=== PATIENT | male | born 1960 | race Caucasian/White ===

== ENCOUNTER → 2016-09-25 | Outpatient (CLI) | payer OTHER ==
--- NOTE | 2016-09-25 13:29 | US ---
EXAMINATION TYPE: US kidneys/renal and bladder DATE OF EXAM: 09/25/2016 COMPARISON: NONE CLINICAL HISTORY: R30.0 Dysuria. Patient stated noticed urinary burning and pain with voiding and sta triston noticed symptoms after change in work equipment oil products/smoke byproducts on work machinery. EXAM MEASUREMENTS: Right Kidney: 10.7 x 5.7 x 4.5 cm Left Kidney: 10.5 x 5.6 x 4.8 cm Post Void Residual Volume: 6.4 mL Right Kidney: No hydronephrosis or masses seen Left Kidney: No hydronephrosis is seen; small lateral cortical cyst is seen = 0.5 x 0.5 x 0.4cm Bladder: not fully distended Bilateral Jets seen: Yes Normal Post Void Residual: yes Prostate: Incidental note that multiple calcifications are seen within the gland. IMPRESSION: 1. Probable simple cyst left kidney. No acute findings seen.
== END ==
LOC: RADUSWWP 12:37
PROVIDERS: ATTEND Family Medicine
DX: R30.0 Dysuria (principal)
CPT/HCPCS: 76770

== ENCOUNTER 2017-04-04 20:10 | Emergency (ER) | payer OTHER ==
[2017-04-04 20:20] VITALS: RESP 18
--- NOTE | 2017-04-04 21:53 | XR ---
PROCEDURE: XR finger LT, 3 views DATE AND TIME: 04/04/2017 9:43 PM REFERRING PHYSICIAN: Evelyn Case CLINICAL INDICATION: Pain. Left fourth digit caught in a machine at work, laceration to middle and d istal phalanx. TECHNIQUE: 3 views were obtained of the third and fourth digit - with partial inclusion of the fifth and second digits. COMPARISON: None FINDINGS: SKELETAL STRUCTURES: There is no fracture or malalignment. SOFT TISSUES: There are numerous tiny threadlike metallic radiopaque foreign bodies throughout soft t issues of the third digit, fourth digit, and visualized fifth digit. These measure 1 mm short axis an d up to 6 mm long axis. IMPRESSION: Scattered radiopaque foreign bodies within the soft tissues.
[2017-04-04] MEDS ORDERED: GELATIN SPONGE,ABSORB (SMALL) 1 EACH SPONGE TOPICAL STA (22:33)
[2017-04-04] MEDS ORDERED: DIPH,PERTUS(ACELL)TETVAC-LF 0.5 ML VIAL IM ONE (22:38)
[2017-04-04] MEDS ORDERED: CEPHALEXIN 500MG STARTER PACK 4 CAP BTL PO STA (22:47)
--- NOTE | 2017-04-04 22:49 | ED ---
Wound/Laceration HPI - General Chief Complaint: Wound/Laceration Stated Complaint: Finger laceration Time Seen by Provider: 04/04/17 21:06 Source: patient, RN notes reviewed, old records reviewed Mode of arrival: ambulatory Limitations: no limitations - History of Present Illness Initial Comments: Patient is a 56 year old male with CC of laceration over left ring finger tip. Patient reports it was smashed between a steel container and conveyor belt at work. He reports no nail bed involvement. Patient has full range of motion of finger. He states he does not recall last tetanus shot. Patient has no other injury associated with accident. He is right handed. - Related Data Home Medications Medication Instructions Recorded Confirmed Ibuprofen [Advil] 200 mg PO Q8HR PRN 04/04/17 04/04/17 Previous Rx's Medication Instructions Recorded Cephalexin [Keflex] 500 mg PO Q8HR #21 cap 04/04/17 Allergies Allergy/AdvReac Type Severity Reaction Status Date / Time No Known Allergies Allergy Verified 04/04/17 21:11 Review of Systems ROS Statement: Those systems with pertinent positive or pertinent negative responses have been documented in the HPI. ROS Other: All systems not noted in ROS Statement are negative. Past Medical History Past Medical History: No Reported History History of Any Multi-Drug Resistant Organisms: None Reported Past Surgical History: No Surgical Hx Reported Past Psychological History: No Psychological Hx Reported Smoking Status: Current every day smoker Past Alcohol Use History: None Reported Past Drug Use History: None Reported General Exam - General Exam Comments Initial Comments: This is a 56 year old male. No distress. Limitations: no limitations General appearance: alert, in no apparent distress Head exam: Present: atraumatic, normocephalic, normal inspection Eye exam: Present: normal appearance, PERRL, EOMI. Absent: scleral icterus, conjunctival injection, periorbital swelling ENT exam: Present: normal exam, mucous membranes moist Neck exam: Present: normal inspection. Absent: tenderness, meningismus, lymphadenopathy Respiratory exam: Present: normal lung sounds bilaterally. Absent: respiratory distress, wheezes, rales, rhonchi, stridor Cardiovascular Exam: Present: regular rate, normal rhythm, normal heart sounds. Absent: systolic murmur, diastolic murmur, rubs, gallop, clicks Left Forearm Wrist exam: Present: normal inspection, full ROM Hand Wrist exam: Present: full ROM, laceration (flap laceration over left tip ring finger. Patient hasno nailbed involvement. No tendon involvement. ). Absent: normal inspection Neuro motor exam: Present: wrist extension intact, thumb opposition intact, thumb IP flexion intact, thumb adduction intact, fingers 2-5 abduction intact Neurosensory exam: Present: 2-point discrimination Vascular: Present: normal capillary refill Back exam: Present: normal inspection Neurological exam: Present: alert, oriented X3, CN II-XII intact Psychiatric exam: Present: normal affect, normal mood Skin exam: Present: warm, dry, intact, normal color. Absent: rash Course Vital Signs 04/04/17 04/04/17 20:16 23:07 Temperature 97.8 F 98.2 F Pulse Rate 75 74 Respiratory 18 18 Rate Blood Pressure 142/66 136/83 O2 Sat by Pulse 98 98 Oximetry Procedures - Laceration Laceration #1 Site: hand (left distal ring finger) Size (cm): 3 Description: flap Depth: simple, single layer Anesthetic Used: lidocaine 1% Anesthesia Technique: nerve block Amount (mls): 4 Pre-repair: wound explored, irrigated extensively Type of Sutures: nylon Size of Sutures: 6-0 Number of Sutures: 8 Technique: simple, interrupted Patient Tolerated Procedure: well, no complications Medical Decision Making - Medical Decision Making Patient is a 56 year old male with a laceration over left ring finger. Patient hand was soaked and given updated tetanus shot. Patient has full ROM no tendon involvement. Patient xrays show no fracture, small metal fragments throughout patient hands. Patient works in metal shop. Patient infomrmed of this. Wound was well approximated with 8 sutures. Patient started on keflex. Patient will follow up with PCP and ortho hand specialist. Discussed wound care. REturn parameters discussed. - Radiology Data Radiology results: report reviewed Small metal fragments noted in hand xray. No fracture or dislcation. Disposition Clinical Impression: Laceration of left ring finger Disposition: HOME SELF-CARE Condition: Good Instructions: Laceration (ED) Additional Instructions: Please return to the emergency room in 8-10 days to have sutures removed. Please leave wound covered for the first 24-48 hours and then leave open to air after that time. Please use clean soap and water to clean the suture area to prevent scabbing over the top of your sutures. Please watch for any signs of infection which may include but not limited to increased pain, swelling, redness , fever or chills. Please return to the emergency room if any signs of infection do occur. Please return to the emergency room for any other concerns or complications. Prescriptions: Cephalexin [Keflex] 500 mg PO Q8HR #21 cap Referrals: None,Stated [Primary Care Provider] - 1-2 days Time of Disposition: 22:49
[2017-04-04 23:08] VITALS: BP 136/83; PULSE 74; TEMP 98.2
--- NOTE | 2017-04-05 06:14 | CDI ---
Documentation Clarification OP Dear DELBERT Chinchilla: Please do addendum to ED report for HPI , Physical exam and MDM. Thank you, Lizbet Jovel [employer] If you have any question, Please contact infrastructure manager at [phone] [facility]
== END 2017-04-04 23:08 | disposition home or self-care (01) ==
LOC: EC 20:10
DX: S61.215A Laceration without foreign body of left ring finger without damage to nail, initial encounter (principal); F17.200 Nicotine dependence, unspecified, uncomplicated; Z23 Encounter for immunization; W23.0XXA Caught, crushed, jammed, or pinched between moving objects, initial encounter; Y99.0 Civilian activity done for income or pay
CPT/HCPCS: 12002; 90471; 90715; 99283

== ENCOUNTER 2017-07-01 18:56 | Emergency (ER) | payer OTHER ==
[2017-07-01] MEDS ORDERED: PROPARACAINE 0.5% OPHTH DROPS 15 ML BTL BOTH EYES STA (22:16)
--- NOTE | 2017-07-01 22:37 | ED ---
General Adult HPI - General Chief complaint: Eye Problems Stated complaint: FB LEFT EYE Time Seen by Provider: 07/01/17 22:13 Source: patient, RN notes reviewed Mode of arrival: ambulatory Limitations: no limitations - History of Present Illness Initial comments: 56-year-old male presents to the emergency department for a chief complaint of foreign body in the left eye. Patient states he was at work when he felt something go into his eye. Patient states he immediately came to the emergency department. Patient denies any visual changes or blurriness of the vision. Patient just has a foreign body sensation in the left eye. Patient denies pain with movement of the eye or pain behind the eye. Patient denies halos or scintillations. Patient denies any other injuries. Patient has no other complaints at this time including shortness of breath, chest pain, abdominal pain, nausea or vomiting, headache, or visual changes. - Related Data Home Medications Medication Instructions Recorded Confirmed Ibuprofen [Advil] 200 mg PO Q8HR PRN 04/04/17 04/04/17 Previous Rx's Medication Instructions Recorded Cephalexin [Keflex] 500 mg PO Q8HR #21 cap 04/04/17 Erythromycin Ophth Oint [Romycin 1 applic LEFT EYE QID 5 Days #1 07/01/17 Ophth Oint] tube Allergies Allergy/AdvReac Type Severity Reaction Status Date / Time No Known Allergies Allergy Verified 07/01/17 20:03 Review of Systems ROS Statement: Those systems with pertinent positive or pertinent negative responses have been documented in the HPI. ROS Other: All systems not noted in ROS Statement are negative. Past Medical History Past Medical History: No Reported History History of Any Multi-Drug Resistant Organisms: None Reported Past Surgical History: No Surgical Hx Reported Past Psychological History: No Psychological Hx Reported Smoking Status: Current every day smoker Past Alcohol Use History: None Reported Past Drug Use History: None Reported General Exam Limitations: no limitations General appearance: alert, in no apparent distress Head exam: Present: atraumatic, normocephalic, normal inspection Eye exam: Present: normal appearance, PERRL, EOMI, other (There is a very small black particle of a foreign body at 6:00 in the left cornea. ). Absent: scleral icterus, conjunctival injection, periorbital swelling, periorbital tenderness Pupils: Present: normal accommodation ENT exam: Present: normal exam, normal oropharynx, mucous membranes moist Respiratory exam: Present: normal lung sounds bilaterally. Absent: respiratory distress, wheezes, rales, rhonchi, stridor Cardiovascular Exam: Present: regular rate, normal rhythm, normal heart sounds. Absent: systolic murmur, diastolic murmur, rubs, gallop, clicks Course Vital Signs 07/01/17 20:00 Temperature 98.8 F Pulse Rate 77 Respiratory 16 Rate Blood Pressure 140/82 O2 Sat by Pulse 97 Oximetry Procedures - Procedures Initial comment: Left eye was numbed with proparacaine. A Q-tip was then used to remove the foreign body successfully. The eye was then stained with fluorescein stain and a Dias lamp was used to inspect the eye. There is a small abrasion at 6:00 where the foreign body was embedded. No signs of a rust ring. Negative Jannie sign. No other abrasions noted. Medical Decision Making - Medical Decision Making 56-year-old male presents to the emergency department for a chief complaint of left eye foreign body 3 hours. Patient was at work when he felt a foreign body in his eye. Patient denies pain behind the eye, visual changes, pain with movement of the eye, halos around lights, or scintillations. Patient states he came immediately to the emergency department. Left eye was inspected and foreign body was removed with Q-tip. Eye was numbed with proparacaine and fluorescein stain and Wood's lamp was used to visualize the abrasion. The only abrasion is the one from the foreign body at 6:00 in the eye. No other abrasions noted. Negative Jannie sign. Both lids were flipped which showed no other foreign bodies. Visual acuity was performed which was 20/20. Patient states he is up-to-date with tetanus as of March due to a laceration. Patient was prescribed erythromycin ointment which he will use for 5 days. He will follow up with primary care in 1-2 days. He will return to the emergency department if he has any worsening symptoms or changes in visual acuity. Disposition Clinical Impression: Corneal foreign body Disposition: HOME SELF-CARE Condition: Good Instructions: Eye Foreign Body (ED) Additional Instructions: Please use antibiotic ointment in left eye as directed. Please return to the emergency department if you have any visual changes or worsening symptoms. Otherwise follow-up with primary care in 1-2 days. Prescriptions: Erythromycin Ophth Oint [Romycin Ophth Oint] 1 applic LEFT EYE QID 5 Days #1 tube Is patient prescribed a controlled substance at d/c from ED?: No Referrals: None,Stated [Primary Care Provider] - 1-2 days Erick Hickman MD [STAFF PHYSICIAN] - 1-2 days Time of Disposition: 22:36
[2017-07-01 22:48] VITALS: BP 129/91; PULSE 71; RESP 18; TEMP 98.4
== END 2017-07-01 22:49 | disposition home or self-care (01) ==
LOC: EC 18:56
DX: T15.02XA Foreign body in cornea, left eye, initial encounter (principal); F17.200 Nicotine dependence, unspecified, uncomplicated; Y92.69 Other specified industrial and construction area as the place of occurrence of the external cause; Y99.0 Civilian activity done for income or pay
CPT/HCPCS: 65222; 99283

== ENCOUNTER 2018-11-13 14:50 | Emergency (ER) | payer OTHER ==
[2018-11-13] MEDS ORDERED: PROPARACAINE 0.5% OPHTH DROPS 15 ML BTL RIGHT EYE STA (15:01)
[2018-11-13] MEDS ORDERED: ERYTHROMYCIN 5 MG/GM OPHTH OINT 3.5 GM TUBE LEFT EYE STA (16:06)
[2018-11-13] MEDS ORDERED: GENTAMICIN 0.3% OPHTH DROPS 5 ML BTL LEFT EYE STA (16:19)
--- NOTE | 2018-11-13 16:22 | ED ---
General Adult HPI - General Chief complaint: Eye Problems Stated complaint: [facility]-FB in eye Time Seen by Provider: 11/13/18 15:01 Source: patient, RN notes reviewed, old records reviewed Mode of arrival: ambulatory Limitations: no limitations - History of Present Illness Initial comments: 58-year-old male patient is ED chief complaint possible foreign body left eye. Patient notes that yesterday while at work he was using a hair blower to clean out a carotid region. Patient points that he was wearing glasses the time. Patient does report that when he got home from work he felt as if he had a foreign body in his left eye region. Patient states the tetanus is up-to-date. Patient reports that he previously irrigated his eye and was rubbing a fair am ount yesterday. Patient reports that this morning he did to have irritation in his left upper lateral eye region. Patient reports that is at baseline. Patient reports the tetanus is up-to-date. Patient denies any other complaints. Systemic: Pt denies fatigue, fever/chills, rash. Pt denies weakness, night sweats, weight loss. Neuro: Pt denies headache, visual disturbances, syncope or pre-syncope. HEENT: Pt denies otalgia, rhinorrhea, pharyngitis or notable lymphadenopathy. Cardiopulmonary: Pt denies chest pain, SOB, heart palpitations, dyspnea on exertion. Abdominal/GI: Pt denies abdominal pain, n/v/d. : Pt denies dysuria, burning w/ urination, frequency/urgency. Denies new onset urinary or bowel incontinence. MSK: Pt denies myalgia, loss of strength or function in extremities. Neuro: Pt denies new onset weakness, paresthesias. - Related Data Home Medications Medication Instructions Recorded Confirmed Ibuprofen [Advil] 200 mg PO Q8HR PRN 04/04/17 04/04/17 Previous Rx's Medication Instructions Recorded Cephalexin [Keflex] 500 mg PO Q8HR #21 cap 04/04/17 Erythromycin Ophth Oint [Romycin 1 applic LEFT EYE QID 5 Days #1 07/01/17 Ophth Oint] tube Gentamicin 0.3% Ophth Soln 2 drops LEFT EYE Q4HR 5 Days #1 11/13/18 [Garamycin 0.3% Ophth Soln] bottle Allergies Allergy/AdvReac Type Severity Reaction Status Date / Time No Known Allergies Allergy Verified 11/13/18 14:58 Review of Systems ROS Statement: Those systems with pertinent positive or pertinent negative responses have been documented in the HPI. ROS Other: All systems not noted in ROS Statement are negative. Past Medical History Past Medical History: No Reported History History of Any Multi-Drug Resistant Organisms: None Reported Past Surgical History: No Surgical Hx Reported Past Psychological History: No Psychological Hx Reported Smoking Status: Current every day smoker Past Alcohol Use History: None Reported Past Drug Use History: None Reported General Exam - General Exam Comments Initial Comments: Constitutional: NAD, AOX3, Pt has pleasant affect. HEENT: NC/AT, trachea midline, neck supple, no lymphadenopathy. Posterior pharynx non erythematous, without exudates. External ears appear normal, without discharge. Mucous membranes moist. Eyes PERRLA, EOM intact. There is no scleral icterus. No pallor noted. Intractable pressure 16 average bilaterally. Fluorescent stain and left eye reveals a corneal abrasion at 3:00 and 11:00. No foreign body noted. No injection. Cardiopulmonary: RRR, no murmurs, rubs or gallops, no JVD noted. Lungs CTAB in anterior and posterior capone. No peripheral edema. Abdominal exam: Abdomen soft and non-distended. Abdomen non-tender to palpation in all 4 quadrants. Bowel sounds active in LLQ. No hepatosplenomegaly. No ecchymosis Neuro: CN II-XII grossly intact. No nuchal rigidity. No raccon eyes, no lopez sign, no hemotympanum. No cervical spinal tenderness. MSK: No posterior calf tenderness bilaterally, homans sign negative bilaterally. Posterior tibialis and radial pulse +2 bilaterally. Sensation intact in upper and lower extremities. Full active ROM in upper and lower extremities, 5/5 stregnth. Limitations: no limitations Course Vital Signs 11/13/18 14:55 Temperature 97.8 F Pulse Rate 80 Respiratory 20 Rate Blood Pressure 132/82 O2 Sat by Pulse 99 Oximetry Medical Decision Making - Medical Decision Making 58-year-old male patient with the chief complaint of possible foreign body. Patient vital signs stable, afebrile. Tetanus up-to-date. Patient was sedated vigorously flush his eye yesterday. Physical exam revealed normal intraocular pressure bilaterally. Corneal abrasion at 3:00 and 11:00. Patient will be discharged on erythromycin. Will follow up with plate maker zinc tomorrow. Patient is not a contact lens wearer. Case discussed with Dr. Lyon, Disposition Clinical Impression: Corneal abrasion, left Disposition: HOME SELF-CARE Condition: Stable Instructions (If sedation given, give patient instructions): Corneal Abrasion (ED) Additional Instructions: Patient to adhere to previously discussed treatment plan and will take medication(s) as directed. Patient to follow up with PCP in 1-2 days. Patient to return to ED if symptoms do not improve. Use antibiotics as directed, follow up with plate maker zinc tomorrow. Return to ER if condition worsens. Prescriptions: Gentamicin 0.3% Ophth Soln [Garamycin 0.3% Ophth Soln] 2 drops LEFT EYE Q4HR 5 Days #1 bottle Is patient prescribed a controlled substance at d/c from ED?: No Referrals: None,Stated [Primary Care Provider] - 1-2 days Eduard Rojas MD [STAFF PHYSICIAN] - 1-2 days
[2018-11-13 16:49] VITALS: BP 130/80; PULSE 81; RESP 16; TEMP 98.1
== END 2018-11-13 16:48 | disposition home or self-care (01) ==
LOC: EC 14:50
DX: S05.02XA Injury of conjunctiva and corneal abrasion without foreign body, left eye, initial encounter (principal); F17.200 Nicotine dependence, unspecified, uncomplicated; X58.XXXA Exposure to other specified factors, initial encounter; Y93.89 Activity, other specified; Y92.69 Other specified industrial and construction area as the place of occurrence of the external cause; Y99.0 Civilian activity done for income or pay
CPT/HCPCS: 99283

== ENCOUNTER 2019-09-04 09:06 | Emergency (ER) | payer OTHER ==
[2019-09-04 10:26] LABS: Basophils # (A) 0.1 k/uL (0-0.2); Basophils % (A) 1 %; Eosinophils # (A) 0.4 k/uL (0-0.7); Eosinophils % (A) 7 %; HCT 43.5 % (39.0-53.0); HGB 14.4 gm/dL (13.0-17.5); Lymphocytes # (A) 2.1 k/uL (1.0-4.8); Lymphocytes % (A) 34 %; MCH 30.1 pg (25.0-35.0); MCHC 33.2 g/dL (31.0-37.0); MCV 90.8 fL (80.0-100.0); Mean Platelet Volume 8.8; Monocytes # (A) 0.4 k/uL (0-1.0); Monocytes % (A) 6 %; Neutrophils # (A) 3.1 k/uL (1.3-7.7); Neutrophils % (A) 50 %; Platelet Count 232 k/uL (150-450); RBC 4.79 m/uL (4.30-5.90); RDW 12.4 % (11.5-15.5); WBC 6.2 k/uL (3.8-10.6)
[2019-09-04 10:35] LABS: ALT 23 U/L (4-49); AST 25 U/L (17-59); African American GFR (CKD) >90 (>60 ml/min/1.73 sqM); Albumin 4.8 g/dL (3.5-5.0); Alkaline Phosphatase 62 U/L (38-126); Anion Gap 9 mmol/L; Blood Urea Nitrogen 18 mg/dL (9-20); Calcium 9.5 mg/dL (8.4-10.2); Carbon Dioxide 24 mmol/L (22-30); Chloride 106 mmol/L (98-107); Glucose 99 mg/dL (74-99); Non-African American GFR(CKD) >90 (>60 ml/min/1.73 sqM); Potassium 4.3 mmol/L (3.5-5.1); Sodium 139 mmol/L (137-145); Total Bilirubin 0.4 mg/dL (0.2-1.3)
[2019-09-04 10:40] LABS: INR 0.9 (<1.2); Partial Thromboplastin Time 24.1 sec (22.0-30.0); Prothrombin Time 9.4 sec (9.0-12.0)
--- NOTE | 2019-09-04 10:51 | ED ---
SOB HPI - General Chief Complaint: Shortness of Breath Stated Complaint: sent by [facility], SOB Time Seen by Provider: 09/04/19 09:15 Source: patient Mode of arrival: ambulatory Limitations: no limitations - History of Present Illness Initial Comments: Patient is a 58-year-old male with past medical history of nephrolithiasis who presents emergency department with reported shortness of breath. Patient reports to source of breath over the past several years however has gotten progressively worse of the past several weeks. He does work around graphite and concerns about work related exposure. Patient admits to a nonproductive cough. No hemoptysis. Denies any chest pain. No previous history of cardiac disease. Does admit to exertional shortness of breath. He did awaken overnight from back pain with numbness and tingling down his left leg. Admits to calf pain. Denies history of DVT or PE. No recent travel. No fevers or chills. No sick contacts with similar symptoms. No other alleviating, precipitating or modifying factors - Related Data Previous Rx's Medication Instructions Recorded Albuterol Sulfate [Proair Hfa] 1 - 2 puff INHALATION Q4HR PRN #1 09/04/19 inhaler Allergies Allergy/AdvReac Type Severity Reaction Status Date / Time No Known Allergies Allergy Verified 09/04/19 10:24 Review of Systems ROS Statement: Those systems with pertinent positive or pertinent negative responses have been documented in the HPI. ROS Other: All systems not noted in ROS Statement are negative. Past Medical History Past Medical History: No Reported History Additional Past Medical History / Comment(s): kidney stones History of Any Multi-Drug Resistant Organisms: None Reported Past Surgical History: No Surgical Hx Reported Past Psychological History: No Psychological Hx Reported Smoking Status: Current every day smoker Past Alcohol Use History: None Reported Past Drug Use History: None Reported General Exam Limitations: no limitations General appearance: alert, in no apparent distress Head exam: Present: atraumatic, normocephalic, normal inspection Eye exam: Present: normal appearance, PERRL, EOMI. Absent: scleral icterus, conjunctival injection, periorbital swelling ENT exam: Present: normal exam, mucous membranes moist Neck exam: Present: normal inspection. Absent: tenderness, meningismus, lymphadenopathy Respiratory exam: Present: normal lung sounds bilaterally. Absent: respiratory distress, wheezes, rales, rhonchi, stridor Cardiovascular Exam: Present: regular rate, normal rhythm, normal heart sounds. Absent: systolic murmur, diastolic murmur, rubs, gallop, clicks GI/Abdominal exam: Present: soft, normal bowel sounds. Absent: distended, tenderness, guarding, rebound, rigid Extremities exam: Present: normal inspection, full ROM, normal capillary refill. Absent: tenderness, pedal edema, joint swelling, calf tenderness Back exam: Present: normal inspection Neurological exam: Present: alert, oriented X3, CN II-XII intact Psychiatric exam: Present: normal affect, normal mood Skin exam: Present: warm, dry, intact, normal color. Absent: rash Course Vital Signs 09/04/19 09/04/19 09:11 12:29 Temperature 98.4 F 98.0 F Pulse Rate 66 65 Respiratory 20 18 Rate Blood Pressure 130/79 117/71 O2 Sat by Pulse 97 96 Oximetry Medical Decision Making - Medical Decision Making Pulmonary the patient is placed in room 10. A thorough history and physical exam was performed. Laboratory studies were conducted. I did ultrasound the patient's left leg as he does report numbness during sleep. Chest is x-ray performed. Laboratory studies are remarkable for a d-dimer of 0.61. I did recommend computed tomography scan of the patient's chest however patient refus ed at this time. Venous Doppler is negative for DVT of the left lower extremity. Chest x-ray demonstrates no acute intrathoracic process. I did discuss diagnosis, differential and treatment options. At this time patient will be discharged home and is to follow-up with his primary care physician. Also recommended follow-up with a botany laboratory assistant for lung function testing. I recommended he decrease his exposure to graphite as the patient insists that this is his inciting reason for shortness of breath. Patient will be provided with an albuterol inhaler. If the patient has any new or worsening symptoms return to the emergency department. Patient was discharged home in stable condition - Lab Data Result diagrams: 09/04/19 10:16 09/04/19 10:16 Lab Results 09/04/19 09/04/19 09/04/19 Range/Units 10:16 10:16 10:16 WBC 6.2 (3.8-10.6) k/uL RBC 4.79 (4.30-5.90) m/uL Hgb 14.4 (13.0-17.5) gm/dL Hct 43.5 (39.0-53.0) % MCV 90.8 (80.0-100.0) fL MCH 30.1 (25.0-35.0) pg MCHC 33.2 (31.0-37.0) g/dL RDW 12.4 (11.5-15.5) % Plt Count 232 (150-450) k/uL Neutrophils % 50 % Lymphocytes % 34 % Monocytes % 6 % Eosinophils % 7 % Basophils % 1 % Neutrophils # 3.1 (1.3-7.7) k/uL Lymphocytes # 2.1 (1.0-4.8) k/uL Monocytes # 0.4 (0-1.0) k/uL Eosinophils # 0.4 (0-0.7) k/uL Basophils # 0.1 (0-0.2) k/uL PT 9.4 (9.0-12.0) sec INR 0.9 (<1.2) APTT 24.1 (22.0-30.0) sec D-Dimer 0.61 H (<0.60) mg/L FEU Sodium 139 (137-145) mmol/L Potassium 4.3 (3.5-5.1) mmol/L Chloride 106 (98-107) mmol/L Carbon Dioxide 24 (22-30) mmol/L Anion Gap 9 mmol/L BUN 18 (9-20) mg/dL Creatinine 0.72 (0.66-1.25) mg/dL Est GFR (CKD-EPI)AfAm >90 (>60 ml/min/1.73 sqM) Est GFR (CKD-EPI)NonAf >90 (>60 ml/min/1.73 sqM) Glucose 99 (74-99) mg/dL Calcium 9.5 (8.4-10.2) mg/dL Total Bilirubin 0.4 (0.2-1.3) mg/dL AST 25 (17-59) U/L ALT 23 (4-49) U/L Alkaline Phosphatase 62 (38-126) U/L Troponin I (0.000-0.034) ng/mL NT-Pro-B Natriuret Pep pg/mL Total Protein 8.0 (6.3-8.2) g/dL Albumin 4.8 (3.5-5.0) g/dL 09/04/19 09/04/19 Range/Units 10:16 10:16 WBC (3.8-10.6) k/uL RBC (4.30-5.90) m/uL Hgb (13.0-17.5) gm/dL Hct (39.0-53.0) % MCV (80.0-100.0) fL MCH (25.0-35.0) pg MCHC (31.0-37.0) g/dL RDW (11.5-15.5) % Plt Count (150-450) k/uL Neutrophils % % Lymphocytes % % Monocytes % % Eosinophils % % Basophils % % Neutrophils # (1.3-7.7) k/uL Lymphocytes # (1.0-4.8) k/uL Monocytes # (0-1.0) k/uL Eosinophils # (0-0.7) k/uL Basophils # (0-0.2) k/uL PT (9.0-12.0) sec INR (<1.2) APTT (22.0-30.0) sec D-Dimer (<0.60) mg/L FEU Sodium (137-145) mmol/L Potassium (3.5-5.1) mmol/L Chloride (98-107) mmol/L Carbon Dioxide (22-30) mmol/L Anion Gap mmol/L BUN (9-20) mg/dL Creatinine (0.66-1.25) mg/dL Est GFR (CKD-EPI)AfAm (>60 ml/min/1.73 sqM) Est GFR (CKD-EPI)NonAf (>60 ml/min/1.73 sqM) Glucose (74-99) mg/dL Calcium (8.4-10.2) mg/dL Total Bilirubin (0.2-1.3) mg/dL AST (17-59) U/L ALT (4-49) U/L Alkaline Phosphatase (38-126) U/L Troponin I <0.012 (0.000-0.034) ng/mL NT-Pro-B Natriuret Pep 39 pg/mL Total Protein (6.3-8.2) g/dL Albumin (3.5-5.0) g/dL - EKG Data EKG Comments: EKG demonstrates a sinus bradycardia with a ventricular rate of 57. MS interval 164. QRS 72. QTC of 406. Some J-point elevation in V2 through V6. No acute ST segment elevations or depressions Disposition Clinical Impression: Cough, Shortness of breath, Environmental exposure Disposition: HOME SELF-CARE Condition: Stable Instructions (If sedation given, give patient instructions): Shortness of Breath (ED) Additional Instructions: I recommend that you decrease your exposure to graphite until evaluated by the botany laboratory assistant. You may have to follow up with her primary care physician prior to seeing the botany laboratory assistant. Use the inhaler as directed. Return to the emergency room for any new or worsening symptoms Prescriptions: Albuterol Sulfate [Proair Hfa] 1 - 2 puff INHALATION Q4HR PRN #1 inhaler PRN Reason: difficulty in breathing Is patient prescribed a controlled substance at d/c from ED?: No Referrals: Yeni Xie MD [REFERRING] - 1-2 days Ji Craig MD [STAFF PHYSICIAN] - 1-2 days Time of Disposition: 11:49
[2019-09-04 11:28] LABS: D-Dimer 0.61 mg/L FEU (<0.60)
--- NOTE | 2019-09-04 11:33 | XR ---
EXAMINATION TYPE: XR chest 2V DATE OF EXAM: 09/04/2019 COMPARISON: None HISTORY: 58 year-old male shortness of breath, difficulty breathing TECHNIQUE: PA and lateral views FINDINGS: The cardiomediastinal silhouette, aorta, and pulmonary vasculature are within normal limits. Lungs an d pleural spaces are clear. IMPRESSION: No acute cardiopulmonary process.
--- NOTE | 2019-09-04 11:36 | US ---
EXAMINATION TYPE: US venous doppler duplex LE LT DATE OF EXAM: 09/04/2019 9:43 AM COMPARISON: NONE CLINICAL HISTORY: 58-year-old male shortness of breath, left leg pain. Pt states left leg pain SIDE PERFORMED: Left TECHNIQUE: The lower extremity deep venous system is examined utilizing real time linear array sonog sol with graded compression, doppler sonography and color-flow sonography. FINDINGS: VESSELS IMAGED: External Iliac Vein (EIV) Common Femoral Vein Deep Femoral Vein Greater Saphenous Vein * Femoral Vein Popliteal Vein Small Saphenous Vein * Proximal Calf Veins (* superficial vessels) Left Leg: Negative for DVT IMPRESSION: No evidence for DVT within the left lower extremity imaged from the groin to the upper calf.
[2019-09-04 12:31] VITALS: BP 117/71; PULSE 65; RESP 18; TEMP 98
== END 2019-09-04 12:32 | disposition home or self-care (01) ==
LOC: EC 09:06
DX: T75.89XA Other specified effects of external causes, initial encounter (principal); R06.02 Shortness of breath; R05 Cough; M79.669 Pain in unspecified lower leg; R22.0 Localized swelling, mass and lump, head; R20.2 Paresthesia of skin; M54.9 Dorsalgia, unspecified; F17.200 Nicotine dependence, unspecified, uncomplicated; Z53.29 Procedure and treatment not carried out because of patient's decision for other reasons
CPT/HCPCS: 36415; 71046; 80053; 83880; 84484; 85025; 85379; 85610; 85730; 93005; 99285